=== PATIENT | male | born 1955 | race African-American/Black ===

== ENCOUNTER 2021-06-21 09:46 | Emergency (ER) | payer OTHER | END 2021-06-21 11:34 | disposition home or self-care (01) | LOC: EEVIPCON 09:46 → ERS 09:46 | DX: S82.51XA Displaced fracture of medial malleolus of right tibia, initial encounter for closed fracture (principal); I10 Essential (primary) hypertension; E78.5 Hyperlipidemia, unspecified; Z87.891 Personal history of nicotine dependence; Z79.899 Other long term (current) drug therapy; W18.30XA Fall on same level, unspecified, initial encounter ==